=== PATIENT | female | born 1980 | race Caucasian/White ===

== ENCOUNTER 2021-07-12 12:51 | Outpatient (CLI) | payer OTHER | END 2021-07-12 12:52 | disposition home or self-care (01) | LOC: CSHMAMMO 12:51 | PROVIDERS: ATTEND Nurse Practitioner Family | DX: N63.21 Unspecified lump in the left breast, upper outer quadrant (principal) | CPT/HCPCS: 77066; G0279 ==

== ENCOUNTER 2023-02-26 14:14 | Outpatient (CLI) | payer OTHER | END 2023-02-26 14:15 | disposition home or self-care (01) | LOC: CSHMAMMO 14:14 | PROVIDERS: ATTEND Nurse Practitioner Family | DX: Z12.31 Encounter for screening mammogram for malignant neoplasm of breast (principal); Z80.3 Family history of malignant neoplasm of breast | CPT/HCPCS: 77063; 77067 ==